=== PATIENT | male | born 1995 ===

== ENCOUNTER 2017-04-09 00:25 | Emergency (ER) | payer SELFPAY ==
[2017-04-09 00:43] VITALS: BP 147/91; PULSE 84; RESP 16; TEMP 98; O2SAT 100
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
== END 2017-04-09 02:38 ==
LOC: H.ER 00:25
DX: F43.22 Adjustment disorder with anxiety (principal); F32.9 Major depressive disorder, single episode, unspecified